=== PATIENT | male | born 1935 | race Caucasian/White ===

== ENCOUNTER 2021-09-12 09:36 | Outpatient (REF) | payer MEDICAID, SELFPAY ==
[2021-09-12 10:00] LABS: MANUAL DIFF FLAG NO
[2021-09-12 10:49] LABS: Basophils Absolute Auto 0.1 X10*3/uL (0.0-0.2); Basophils Percent Auto 0.9 % (0-2); Eosinophils Absolute Auto 0.3 X10*3/uL (0.0-0.4); Hematocrit 40.1 % (42.0-52.0); Hemoglobin 13.5 g/dl (14.0-18.0); Imm Gran Abs Auto 0.01 X10*3/uL (0.00-0.03); Imm Gran Pct Auto 0.2 % (0.0-0.4); Lymphocytes Absolute Auto 1.9 X10*3/uL (1.2-4.9); Lymphocytes Percent Auto 35.2 % (20-40); Mean Corpuscular HGB Conc 33.7 g/dl (31.0-36.0); Mean Corpuscular Hemoglobin 30.6 pg (27.0-33.0); Mean Corpuscular Volume 90.9 fL (80.0-98.0); Mean Platelet Volume 10.1 fL (9.4-12.4); Monocytes Absolute Auto 0.4 X10*3/uL (0.1-1.2); Monocytes Percent Auto 6.6 % (2-11); Neutrophils Absolute Auto 2.8 x10*3/uL (2.0-8.3); Neutrophils Percent Auto 52.1 % (45-73); Platelet Count 174 X10*3/uL (160-400); Red Blood Count 4.41 X10*6/uL (4.60-5.80); Red Cell Distribution Width 12.9 % (11.0-16.0); White Blood Count 5.5 X10*3/uL (4.8-10.8)
[2021-09-12 10:56] LABS: Estimated Average Glucose 100 mg/dL; Hemoglobin A1c % 5.1 %
[2021-09-12 11:17] LABS: Alanine Aminotransferase 8 U/L (0-40); Albumin Level 4.4 g/dL (3.5-5.0); Alkaline Phosphatase 54 U/L (39-117); Anion Gap 13 (12-20); Aspartate Amino Transferase 19 U/L (5-37); Bilirubin Total 0.5 mg/dL (0.0-1.0); Blood Urea Nitrogen 17 mg/dL (9-16); Calcium 9.8 mg/dL (8.4-10.2); Carbon Dioxide 29 mmol/L (22-29); Chloride 104 mmol/L (96-108); Cholesterol 177 mg/dL; Estimated Glomerular Filt Rate > 60; Glucose Fasting 89 mg/dL (60-99); HDL Cholesterol 41 mg/dL; LDL Cholesterol Calculated 102 mg/dl; Potassium 4.7 mmol/L (3.3-5.1); Sodium 141 mmol/L (135-145); Total Protein 7.2 g/dL (6.5-8.0); Triglycerides 172 mg/dL
[2021-09-12 11:40] LABS: Prostate Specific Antigen Scr 1.59 ng/mL (<0.05-4.0)
== END 2021-09-12 09:37 | disposition home or self-care (01) ==
LOC: HO.LAB 09:36
PROVIDERS: PCP Internal Medicine; Visit Provider Nurse Practitioner Acute Care
DX: Z76.89 Persons encountering health services in other specified circumstances (principal); Z13.220 Encounter for screening for lipoid disorders; Z12.5 Encounter for screening for malignant neoplasm of prostate; Z13.1 Encounter for screening for diabetes mellitus
CPT/HCPCS: 36415; 80053; 80061; 83036; 84153; 85025

== ENCOUNTER 2021-11-29 08:36 | Outpatient (REF) | payer MEDICAID, SELFPAY ==
[2021-11-29 08:54] LABS: MANUAL DIFF FLAG NO
[2021-11-29 09:13] LABS: Basophils Absolute Auto 0.1 X10*3/uL (0.0-0.2); Basophils Percent Auto 1.1 % (0-2); Eosinophils Absolute Auto 0.4 X10*3/uL (0.0-0.4); Eosinophils Percent Auto 8.5 % (0-4); Hematocrit 40.3 % (42.0-52.0); Hemoglobin 13.2 g/dl (14.0-18.0); Imm Gran Abs Auto 0.02 X10*3/uL (0.00-0.03); Imm Gran Pct Auto 0.4 % (0.0-0.4); Lymphocytes Absolute Auto 1.9 X10*3/uL (1.2-4.9); Mean Corpuscular HGB Conc 32.8 g/dl (31.0-36.0); Mean Corpuscular Hemoglobin 30.1 pg (27.0-33.0); Mean Platelet Volume 9.7 fL (9.4-12.4); Monocytes Absolute Auto 0.3 X10*3/uL (0.1-1.2); Monocytes Percent Auto 7.2 % (2-11); Neutrophils Percent Auto 41.8 % (45-73); Platelet Count 167 X10*3/uL (160-400); Red Blood Count 4.38 X10*6/uL (4.60-5.80); Red Cell Distribution Width 12.5 % (11.0-16.0); White Blood Count 4.7 X10*3/uL (4.8-10.8)
[2021-11-29 09:30] LABS: Appearance Urine CLEAR; Color Urine STRAW; Glucose Urine UA NEG (NEG); Leukocyte Esterase Urine NEG (NEG); Nitrite Urine NEG (NEG); UACC Culture Trigger NO; Urine Blood TRACE (NEG); Urine Ketones NEG (NEG); Urine Protein NEG (NEG-TRACE)
[2021-11-29 09:45] LABS: RBC Urine 0-2 /HPF (0); WBC Urine 0 /HPF (0-4)
[2021-11-29 09:46] LABS: Alanine Aminotransferase 6 U/L (0-40); Albumin Level 4.2 g/dL (3.5-5.0); Alkaline Phosphatase 57 U/L (39-117); Anion Gap 9 (12-20); Aspartate Amino Transferase 20 U/L (5-37); Bilirubin Total 0.4 mg/dL (0.0-1.0); Blood Urea Nitrogen 17 mg/dL (9-16); Calcium 9.5 mg/dL (8.4-10.2); Carbon Dioxide 30 mmol/L (22-29); Chloride 106 mmol/L (96-108); Cholesterol 181 mg/dL; Estimated Glomerular Filt Rate > 60; Glucose Fasting 86 mg/dL (60-99); HDL Cholesterol 37 mg/dL; LDL Cholesterol Calculated 106 mg/dl; Potassium 4.5 mmol/L (3.3-5.1); Sodium 140 mmol/L (135-145); Triglycerides 193 mg/dL
[2021-11-29 09:57] LABS: TSH reflex Free T4 0.64 uIU/mL (0.32-4.0); Vitamin D 25-OH Total 19.4 ng/mL (>30)
== END 2021-11-29 08:37 | disposition home or self-care (01) ==
LOC: HO.LAB 08:36
PROVIDERS: PCP Internal Medicine; Visit Provider Internal Medicine
DX: E78.00 Pure hypercholesterolemia, unspecified (principal); I10 Essential (primary) hypertension; E55.9 Vitamin D deficiency, unspecified
CPT/HCPCS: 36415; 80053; 80061; 81001; 82306; 84443; 85025

== ENCOUNTER → 2022-04-05 09:46 | Outpatient (BNVA) | payer MEDICAID, SELFPAY | PROVIDERS: PCP Internal Medicine; Visit Provider Urology | DX: N40.1 Benign prostatic hyperplasia with lower urinary tract symptoms (principal); R39.11 Hesitancy of micturition | CPT/HCPCS: 51798; 99202 ==

== ENCOUNTER 2022-08-01 11:00 | Outpatient (RCR) | payer MEDICAID, SELFPAY ==
[2022-07-18 10:54] VITALS: BP 149/67; PULSE 69
--- NOTE | 2022-07-18 12:44 | MHC.PT.EP ---
[facility] [place] Office [place] Office [place] Office [address] Payton Varner [address] [phone] F: [phone] F: [phone] F: [phone] F: [phone] Physical Therapy Plan of Care Date of Evaluation: Date of Surgery: NA Diagnosis: Other reduced mobility Assessment: Jose is a 86 year old male who is referred to PT for reduced mobility . Jose denies having pain. He is here is PT as his daughter and PCP noticed changes in his posture and difficulty performing sit to stand at home. On PT examination he presented with 0/10 pain and no TTP, decreased cervical and lumbo-thoracic ROM, decreased strength in B hip and shoulder strength and altered posture. He was able to perform 8 sit to mixer whipped topping 30 seconds without UE support. He is independent with all ADLS however takes longer to complete them per family members. He would benefit from skilled PT to address the aforementioned impairments and improve tolerance to functional activities. Frequency and Duration: The patient will be seen 2/week for 4 weeks Short Term Goals: 1. Pt will demonstrate initiation of HEP in 2 weeks. 2. Pt will demonstrate improved mobility spine by 25% in 3 weeks [facility] Goals: 1. Pt will demonstrate an increase in muscle strength by 1 grade in 4 weeks. 2. Pt will be independent with HEP for symptom management and maintenance following d/c in 4 weeks Treatment Plan: Modalities to reduce pain, spasms and effusion. Manual therapy to restore motion and function. Therapeutic exercise to improve strength and flexibility. Neuromuscular re-education for posture and balance. Therapeutic activities to return to functional activities of daily living. Electronically signed by: Roseline Joseph PT DPT Please sign and return to therapist. Thank you for your referral.
--- NOTE | 2022-08-27 10:31 | MHC.PT.DC ---
[facility] [place] Office [place] Office [place] Office [address] Payton Varner [address] [phone] F: [phone] F: [phone] F: [phone] F: [phone] Physical Therapy Discharge Report Diagnosis: Other reduced mobility Date of Surgery: NA Date of Evaluation: 07/18/22 Date of Discharge: 08/27/22 Treatments to Date: 2 Cancellations to Date: No Shows to Date: Discharge Status: Patient Elected to Stop Discharge Summary: Pt's family called and canceled all appointments stating that the pt was unwell and is unable to attend PT. He is therefore being d/c from PT. Electronically signed by: Roseline Joseph PT DPT Please sign and return to therapist. Thank you for your referral.
== END 2022-08-27 10:32 | disposition home or self-care (01) ==
LOC: HO.PT 11:00
PROVIDERS: PCP Internal Medicine; Visit Provider Internal Medicine
DX: Z74.09 Other reduced mobility (principal)
CPT/HCPCS: 97110; 97112; 97161

== ENCOUNTER 2022-08-07 10:03 | Outpatient (REF) | payer MEDICAID, SELFPAY ==
--- NOTE | 2022-08-07 17:35 | MHC.AU.HAS ---
Hearing Aid Evaluation Date of Visit: 08/07/22 Chiropractic Care Used: Not Applicable Historical Information: Description of Hearing: Normal hearing at 250 and 500 Hz, precipitously dropping to a profound high frequency sensorineural hearing loss bilaterally. Current personal amplification information, if applicable: NONE Summary: Medical clearance was provided by [facility] of [facility]. With this significant hearing loss, Jose has difficulty understanding speech and perceives bother bilateral tinnitus. Extensively counseled about realistic expectation of the hearing aids and how they will not give normal hearing and he will still perceive tinnitus, but may reduce loudness of tinnitus while wearing. Also discussed every day, all day use is necessary for benefit of both speech understanding. Patient is hesitant to make the commitment; however, after further discussion he wants to try aids. Patient will be leaving for [place] in August Hearing Aid Prescription: Based on the individual?s shared listening needs, communication environments, dexterity, desire for connectivity, and personal preferences, the following prescription for amplification has been made: Right ear: Club Concierge: PhonDucksboard Model: Audeo P 70-R Battery Size: Rechargeable Color: Silver Parker Software Engineering Manager: #2 P Type of Dome: Vented Left ear:Left ear prescription to be same as Right Hearing Aid above: Club Concierge: Phonak Model: Audeo P 70-R Battery Size: Rechargeable Color: Silver Parker Software Engineering Manager: #2 P Type of Dome: Vented Plan of Care: Patient wishes to purchase hearing aids as prescribed Comments: Hearing Aid Fitting scheduled for 08/15/2022 3:45. Primary Diagnosis: H90.3 Bilateral Sensorineural Hearing Loss Secondary Diagnosis: H93.13 Tinnitus, Bilateral Signature:Provider: Fermin Miller, [facility]
== END 2022-08-07 10:04 | disposition home or self-care (01) ==
LOC: HO.HAP 10:03
PROVIDERS: Visit Provider Internal Medicine
DX: Z46.1 Encounter for fitting and adjustment of hearing aid (principal); H90.3 Sensorineural hearing loss, bilateral; H93.13 Tinnitus, bilateral
CPT/HCPCS: 92591

== ENCOUNTER 2022-08-10 08:59 | Outpatient (REF) | payer MEDICAID, SELFPAY ==
--- NOTE | ~2022-08-10 | XR_ITS ---
EXAMINATION: XR CHEST CLINICAL INFORMATION: Dyspnea COMPARISON: None TECHNIQUE: 2 views of the chest were obtained. FINDINGS: The lungs are well-expanded with no acute process. Heart size and pulmonary vascularity is normal. There is moderate spondylosis dorsal spine. No aggressive lytic or sclerotic process seen. XR/XR chest 2V IMPRESSION: Unremarkable chest exam.
--- NOTE | 2022-08-10 17:11 | PFT_ITS ---
INDICATION: Dyspnea. COMMENTS: During the procedure, the patient was not successfully performing the maneuvers despite multiple attempts. Therefore, the patient could not perform the pulmonary function study and no accurate data was collected. Considering repeating the study in the future. About 5% predicted, although this is likely is a suboptimal effort. MD CHANTELLE Pan/JACOB / [id number]
== END 2022-08-10 09:00 | disposition home or self-care (01) ==
LOC: HO.RESP 08:59
PROVIDERS: Visit Provider Internal Medicine
DX: R06.00 Dyspnea, unspecified (principal); F17.200 Nicotine dependence, unspecified, uncomplicated
CPT/HCPCS: 71046

== ENCOUNTER 2022-08-15 15:43 | Outpatient (REF) | payer MEDICAID, SELFPAY ==
--- NOTE | 2022-08-16 15:23 | MHC.AU.HFA ---
Hearing Instrument Fitting- Adult- Binaural Date of Visit: 08/15/22 Outside Rigger Used: Hearing Instruments Dispensed: Right Ear: Paintless Dent Repair Technician: Phonak Model: Audeo P 70-R Serial Number: Phonak Shruthieo P70-R SN: [id number] Color: Silver Parker Repair Warranty: 11/05/2025 Loss and Damage Warranty: 11/05/2025 Service Plan: Battery Size: Rechargeable Color: Office Technician: 1P Tubing: Type of Dome: Type of Mold: Medium vented dome Type of Wax Guard: CeruShield Left Ear: Paintless Dent Repair Technician: Phonak Model: Audeo P 70-R Serial Number: Phonak Audeo P70-R SN: [id number] Color: Silver Parker Repair Warranty: 11/05/2025 Loss and Damage Warranty: 11/05/2025 Service Plan: Battery Size: Rechargeable Color: Office Technician: 1P Tubing: Type of Dome: Type of Mold: Medium vented dome Type of Wax Guard: CeruShield Accessories/Assistive Technology: Summary of Fitting: Jose returned for a hearing aid fitting. Feedback scale manager and real ear measurements were performed. Jose noted an immediate improvement in ease of communication and reported the sound was comfortable at the real ear settings. Discussed care, use, and maintenance including charging, manually turning on/off, and changing the dome and wax guard. Demonstrated insertion and removal of the hearing aids to Jose and his daughter. Explained the importance of consistent use and the acclimatization period to hearing aids. Jose is traveling to [place] at the beginning of August so a follow up/hearing aid check was scheduled on August 27, 2022. Recommendations: Recommendations: A hearing instrument follow-up was scheduled. Please call our clinic with any questions or concerns. Recommendations (Other): Diagnosis Code(s): Primary Diagnosis: H90.3 Bilateral Sensorineural Hearing Loss Secondary Diagnosis: H93.13 Tinnitus, Bilateral Services Performed: Hearing Aid Evaluation Type: Ear Impression (Quantity): Earmold (Quantity): Swim Mold (Quantity): Musician's Plug (Quantity): GREENE Dispensing Fees: GREENE Product Codes: Fitting Accessories: GREENE Accessories (Quantity): Accessory Description: Hearing Aid Fitting Services: Number of Individual Battery Cells: Package of Wax Guards: GREENE Purchased through [facility] or Outside Vendor: GREENE Maintenance, Minor Repair (Quantity): Office Technician Replaced, Out of Warranty: Domes/Tubes: Out of Warranty Repair by Paintless Dent Repair Technician: Extended Warranty (1 or 2 Instruments): Cerumen Removal: Loss and Damage Replacement Fee: GREENE Non-Quantity Charges: Signature: Student/Clinical Fellow: I have reviewed/agreed with student/fellow documentation: Provider: Fermin Hunt, [facility]
--- NOTE | 2022-08-16 15:26 | MHC.AU.HFA ---
Hearing Instrument Fitting- Adult- Binaural Date of Visit: 08/15/22 Hearing Instruments Dispensed: Right Ear: Blender Operator: Phonak Audeo P70-R SN: [id number] Color: Silver Parker Repair Warranty: 11/05/2025 Loss and Damage Warranty: 11/05/2025 Battery Size: Rechargeable Real Estate Administrator: 1P Type of Mold: Medium vented dome Type of Wax Guard: CeruShield Left Ear: Phonak Audeo P70-R SN: [id number] Color: Silver Parker Repair Warranty: 11/05/2025 Loss and Damage Warranty: 11/05/2025 Battery Size: Rechargeable Real Estate Administrator: 1P Type of Mold: Medium vented dome Type of Wax Guard: CeruShield Summary of Fitting: Jose returned for a hearing aid fitting. Feedback security manager and real ear measurements were performed. Jose noted an immediate improvement in ease of communication and reported the sound was comfortable at the real ear settings. Discussed care, use, and maintenance including charging, manually turning on/off, and changing the dome and wax guard. Demonstrated insertion and removal of the hearing aids to Jose and his daughter. Explained the importance of consistent use and the acclimatization period to hearing aids. Jose is traveling to [place] at the beginning of August so a follow up/hearing aid check was scheduled on August 27, 2022. Recommendations: A hearing instrument follow-up was scheduled. Please call our clinic with any questions or concerns. Diagnosis Code(s): Primary Diagnosis: H90.3 Bilateral Sensorineural Hearing Loss Secondary Diagnosis: H93.13 Tinnitus, Bilateral Signature: Provider: Fermin Hunt, [facility]
== END 2022-08-15 15:44 | disposition home or self-care (01) ==
LOC: HO.HAP 15:43
PROVIDERS: Visit Provider Otolaryngology
DX: Z46.1 Encounter for fitting and adjustment of hearing aid (principal); H90.3 Sensorineural hearing loss, bilateral; H93.13 Tinnitus, bilateral
CPT/HCPCS: V5011; V5020; V5160; V5261

== ENCOUNTER 2022-08-16 14:43 | Outpatient (REF) | payer MEDICAID, SELFPAY ==
[2022-08-16 16:30] LABS: Vitamin B12 > 2000 pg/mL (200-900)
[2022-08-17 06:54] LABS: Syphilis Screen Nonreactive (Nonreactive)
== END 2022-08-16 14:44 | disposition home or self-care (01) ==
LOC: HO.LAB 14:43
PROVIDERS: Visit Provider Psychiatry & Neurology Neurology
DX: G30.9 Alzheimer's disease, unspecified (principal)
CPT/HCPCS: 36415; 82607; 86780

== ENCOUNTER 2022-08-21 14:02 | Outpatient (REF) | payer MEDICAID, SELFPAY ==
--- NOTE | ~2022-08-21 | CT_ITS ---
EXAMINATION: CT HEAD WITHOUT CONTRAST CLINICAL INFORMATION: Alzheimer's disease. COMPARISON: None. TECHNIQUE: Contiguous axial imaging was performed from the skullbase to vertex without intravenous administration of contrast. This CT examination was performed using dose optimization techniques as appropriate, variously including the following: *Automated exposure control *Adjustment of mA and/or kV according to patient size (this includes techniques or standardized protocols for targeted exams where dose is matched to indication/reason for exam; i.e. extremities or head) *Use of iterative reconstruction technique DLP: 837 mGy-cm. FINDINGS: There is no evidence of acute intracranial hemorrhage or territorial infarction. No abnormal mass effect or midline shift is seen. Parker to white matter differentiation is well preserved. No extra-axial fluid collections are identified. Moderate chronic white matter microangiopathy evident. There is moderate diffuse parenchymal volume loss and concordant ex vacuo prominence of the ventricles. The osseous structures and soft tissues are normal. The mastoid air cells are well aerated. There are aerosolized mucosal secretions in the right sphenoid and bilateral maxillary sinuses. CT/CT head/brain wo IV con IMPRESSION: 1. No acute intracranial hemorrhage or territorial infarction. Moderate diffuse parenchymal volume loss and chronic white matter microangiopathy. 2. Aerosolized mucosal secretions in the right sphenoid and bilateral maxillary sinuses.
== END 2022-08-21 14:03 | disposition home or self-care (01) ==
LOC: HO.CT 14:02
PROVIDERS: Visit Provider Psychiatry & Neurology Neurology
DX: G30.9 Alzheimer's disease, unspecified (principal)
CPT/HCPCS: 70450

== ENCOUNTER 2022-08-30 15:00 | Outpatient (REF) | payer MEDICAID, SELFPAY ==
--- NOTE | 2022-08-30 15:59 | MHC.AU.HFU ---
Hearing Instrument Follow-Up- Binaural Date of Visit: 08/30/22 Right Ear: Phonak Audeo P70-R SN: [id number] Color: Silver Parker Repair Warranty: 11/05/2025 Loss and Damage Warranty: 11/05/2025 Battery Size: Rechargeable Bar Examiner: 1P Type of Mold: Medium vented dome Type of Wax Guard: CeruShield Dispensed By: [facility] Date of Fittin08/15/2022 Left Ear: Phonak Audeo P70-R SN: [id number] Color: Silver Parker Repair Warranty: 11/05/2025 Loss and Damage Warranty: 11/05/2025 Battery Size: Rechargeable Bar Examiner: 1P Type of Mold: Medium vented dome Type of Wax Guard: CeruShield Dispensed By: [facility] Date of Fittin08/15/2022 Follow-Up Summary: Jose returned for a follow-up after his initial hearing aid fitting. The hearing aids were not charged upon arrival. Per his daughter, Jose does not like leaving the hearing aids in the computer education teacher overnight. Advised overnight is the best time to charge the devices so the batteries have a full charge for the next day. Reviewed manually turning on/off versus volume control use. Data logging shows about 5 hours of use/day. The sound quality is reportedly comfortable with noticeable benefit; however, Jose is more concerned with how the hearing aids look on his ears. He also has some difficulty inserting the hearing aids. Discussed possibility of c-shells for ease of insertion. His daughter reported that Jose will not accept a custom ear mold as he believes it would be more noticeable and uncomfortable. Jose will be traveling for at least the next three months; however, he will contact the clinic when he returns if he would like to trial c-shell ear molds. Recommendations: Hearing instrument maintenance in 6 months, or sooner if needed. Please contact our clinic with any questions or concerns. Diagnosis Code(s): Primary Diagnosis: H90.3 Bilateral Sensorineural Hearing Loss Secondary Diagnosis: H93.13 Tinnitus, Bilateral Signature: Provider: Fermin Hunt, [facility]
== END 2022-08-30 15:01 | disposition home or self-care (01) ==
LOC: HO.HAP 15:00
PROVIDERS: Visit Provider Internal Medicine
DX: Z13.89 Encounter for screening for other disorder (principal)